=== PATIENT | female | born 1970 | race Caucasian/White ===

== ENCOUNTER → 2017-10-30 11:30 | Outpatient (CLI) | payer BC, SELFPAY ==
[2017-10-30 12:58] LABS: Hemoglobin A1c 5.8 % (4.2-6.3)
== END ==
PROVIDERS: Family Provider Family Medicine; PCP Family Medicine; Visit Provider Family Medicine
DX: R73.09 Other abnormal glucose (principal)
CPT/HCPCS: 36415; 83036

== ENCOUNTER → 2018-05-02 08:51 | Outpatient (CLI) | payer BC, SELFPAY ==
[2018-05-02 10:03] LABS: Hemoglobin A1c 5.7 % (4.2-6.3)
[2018-05-02 10:10] LABS: Anion Gap 7 (5-15); BUN 12 mg/dL (7-18); Calcium,Total 8.3 mg/dL (8.5-10.1); Chloride 104 mmol/L (98-107); Cholesterol 244 mg/dL (200); EST Glomerular Filtration Rate 82 mL/min (>60); Est Glom Filt Rate - Afr Amer 99 mL/min (>60); Glucose 119 mg/dL (74-106); High Density Lipoprotein 62 mg/dL; Sodium Level 139 mmol/L (136-145); Triglycerides 227 mg/dL; Very Low Density Lipoprotein 45 mg/dL (5-40)
== END ==
PROVIDERS: Family Provider Family Medicine; PCP Family Medicine; Referring Provider Family Medicine; Visit Provider Family Medicine
DX: R73.03 Prediabetes (principal)
CPT/HCPCS: 36415; 80048; 80061; 83036

== ENCOUNTER → 2018-11-21 12:00 | Outpatient (CLI) | payer BC, SELFPAY ==
[2018-11-21 13:09] LABS: ALB/GLOB Ratio 1.2 RATIO (0.9-2.4); AST(SGOT) 16 U/L (15-37); Alanine Aminotransfer ALT/SGPT 26 U/L (13-56); Albumin, Serum 3.6 g/dL (3.2-5.0); Alkaline Phosphatase 75 U/L (45-117); Anion Gap 6 (5-15); BUN 13 mg/dL (7-18); BUN/Creat Ratio 15.9 RATIO (10-20); Calcium,Total 8.7 mg/dL (8.5-10.1); Chloride 104 mmol/L (98-107); Cholesterol 250 mg/dL (200); Creatinine, Serum 0.82 mg/dL (0.55-1.02); EST Glomerular Filtration Rate 80 mL/min (>60); Est Glom Filt Rate - Afr Amer 96 mL/min (>60); Globulin 3.1 g/dL (2.2-4.2); Glucose 108 mg/dL (74-106); High Density Lipoprotein 61 mg/dL; Potassium 4.2 mmol/L (3.5-5.1); Protein, Total 6.7 g/dL (6.4-8.2); Sodium Level 139 mmol/L (136-145); Thyroid Stim Hormone (TSH) 1.11 uIU/mL (0.358-3.74); Triglycerides 274 mg/dL; Very Low Density Lipoprotein 55 mg/dL (5-40)
[2018-11-21 13:10] LABS: Hemoglobin A1c 6.1 % (4.2-6.3)
== END ==
PROVIDERS: Family Provider Family Medicine; PCP Family Medicine; Referring Provider Family Medicine; Visit Provider Family Medicine
DX: R73.03 Prediabetes (principal); E78.5 Hyperlipidemia, unspecified; R68.89 Other general symptoms and signs
CPT/HCPCS: 36415; 80053; 80061; 83036; 84443

== ENCOUNTER → 2019-05-19 08:35 | Outpatient (CLI) | payer BC, SELFPAY ==
[2019-05-19 10:33] LABS: Hemoglobin A1c 5.7 % (4.2-6.3)
[2019-05-19 10:57] LABS: ALB/GLOB Ratio 1.2 RATIO (0.9-2.4); AST(SGOT) 24 U/L (15-37); Alanine Aminotransfer ALT/SGPT 55 U/L (13-56); Albumin, Serum 3.7 g/dL (3.2-5.0); Alkaline Phosphatase 85 U/L (45-117); Anion Gap 5 (5-15); BUN 13 mg/dL (7-18); Calcium,Total 8.6 mg/dL (8.5-10.1); Chloride 107 mmol/L (98-107); Cholesterol 216 mg/dL (200); Creatinine, Serum 0.76 mg/dL (0.55-1.02); EST Glomerular Filtration Rate 86 mL/min (>60); Est Glom Filt Rate - Afr Amer 104 mL/min (>60); Glucose 116 mg/dL (74-106); High Density Lipoprotein 56 mg/dL; Luteinizing Hormone 12.5 mIU/mL; Potassium 4.1 mmol/L (3.5-5.1); Protein, Total 6.7 g/dL (6.4-8.2); Sodium Level 139 mmol/L (136-145); Triglycerides 167 mg/dL; Very Low Density Lipoprotein 33 mg/dL (5-40)
== END ==
PROVIDERS: Family Provider Family Medicine; PCP Family Medicine; Referring Provider Family Medicine; Visit Provider Family Medicine
DX: N91.2 Amenorrhea, unspecified (principal); R23.2 Flushing; R73.9 Hyperglycemia, unspecified
CPT/HCPCS: 36415; 80053; 80061; 83001; 83002; 83036

== ENCOUNTER → 2020-07-15 14:48 | Outpatient (CLI) | payer BC, SELFPAY ==
[2020-07-15 15:39] LABS: Hemoglobin A1c 5.5 % (3.8-5.6)
[2020-07-15 16:01] LABS: ALB/GLOB Ratio 1.2 RATIO (0.9-2.4); AST(SGOT) 25 U/L (15-37); Alanine Aminotransfer ALT/SGPT 54 U/L (13-56); Albumin, Serum 3.9 g/dL (3.2-5.0); Alkaline Phosphatase 89 U/L (45-117); Anion Gap 6 (5-15); BUN 15 mg/dL (7-18); BUN/Creat Ratio 16.2 RATIO (10-20); Chloride 103 mmol/L (98-107); Cholesterol 280 mg/dL (200); Creatinine, Serum 0.92 mg/dL (0.55-1.02); EST Glomerular Filtration Rate 69 mL/min (>60); Est Glom Filt Rate - Afr Amer 83 mL/min (>60); Globulin 3.2 g/dL (2.2-4.2); Glucose 113 mg/dL (74-106); High Density Lipoprotein 77 mg/dL; Potassium 3.8 mmol/L (3.5-5.1); Protein, Total 7.1 g/dL (6.4-8.2); Sodium Level 137 mmol/L (136-145); Triglycerides 220 mg/dL; Very Low Density Lipoprotein 44 mg/dL (5-40)
== END ==
PROVIDERS: PCP Family Medicine; Referring Provider Family Medicine; Visit Provider Family Medicine
DX: R73.03 Prediabetes (principal); E78.5 Hyperlipidemia, unspecified
CPT/HCPCS: 36415; 80053; 80061; 83036

== ENCOUNTER → 2021-02-20 10:07 | Outpatient (CLI) | payer BC, SELFPAY ==
[2021-02-20 11:02] LABS: Hemoglobin A1c 5.6 % (3.8-5.6)
[2021-02-20 11:19] LABS: Anion Gap 4 (5-15); BUN 13 mg/dL (7-18); BUN/Creat Ratio 19.7 RATIO (10-20); Calcium,Total 8.4 mg/dL (8.5-10.1); Chloride 107 mmol/L (98-107); Creatinine, Serum 0.66 mg/dL (0.55-1.02); EST Glomerular Filtration Rate 101 mL/min (>60); Est Glom Filt Rate - Afr Amer 122 mL/min (>60); Glucose 114 mg/dL (74-106); Potassium 4.2 mmol/L (3.5-5.1); Sodium Level 137 mmol/L (136-145)
== END ==
PROVIDERS: PCP Family Medicine; Referring Provider Family Medicine; Visit Provider Family Medicine
DX: Z00.00 Encounter for general adult medical examination without abnormal findings (principal); E78.5 Hyperlipidemia, unspecified; F41.9 Anxiety disorder, unspecified
CPT/HCPCS: 36415; 80048; 82306; 83036

== ENCOUNTER → 2022-03-27 | Outpatient (CLI) | payer BC, SELFPAY ==
[2022-03-27 09:46] LABS: Absolute Lymphocyte Count 1.63 X10^3/uL (0.83-4.51); Absolute Neutrophil Count 4.4 X10^3/uL (2.0-7.7); Basophil# 0.04 X10^3/uL; Basophil% 0.6 % (0-1); Eosinophil# 0.28 X10^3/uL; Eosinophils% 4.2 % (0-5); Hematocrit 40.6 % (37-47); Hemoglobin 13.7 g/dL (12.0-15.0); Lymphocyte # 1.63 X10^3/ul (0.83-4.51); Lymphocyte % 24.6 % (19-41); Mean Corp Hgb Conc 33.7 g/dL (32-36); Mean Corpuscular Hgb 27.8 pg (27.0-32.0); Mean Corpuscular Volume 82.4 fL (81-99); Mean Platelet Vol. 10.9 fl (6.2-12.0); Monocyte% 4.5 % (0-10); NRBC Flagged by Analyzer 0 % (0-5); Neutrophil # 4.36 X10^3/uL (2.7-7.7); Neutrophil % 65.8 % (47-70); Platelet Count 272 K/mm3 (150-450); RBC Distribution Width CV 13.2 % (11.6-14.6); RBC Distribution Width SD 39.4 fl (35.1-43.9); Red Blood Count 4.93 M/mm3 (4.2-5.4); White Blood Count 6.6 K/mm3 (4.4-11.0)
[2022-03-27 10:11] LABS: Vitamin B12 1090 pg/mL (211-911); Vitamin D,25 Hydroxy 74.9 ng/mL
[2022-03-27 10:14] LABS: Hemoglobin A1c 5.6 % (3.8-5.6)
[2022-03-27 10:24] LABS: ALB/GLOB Ratio 1.3 RATIO (0.9-2.4); AST(SGOT) 22 U/L (15-37); Alanine Aminotransfer ALT/SGPT 59 U/L (13-56); Alkaline Phosphatase 72 U/L (45-117); Anion Gap 6 (5-15); BUN 17 mg/dL (7-18); BUN/Creat Ratio 18.5 RATIO (10-20); Calcium,Total 8.9 mg/dL (8.5-10.1); Chloride 104 mmol/L (98-107); Cholesterol 217 mg/dL (200); Creatinine, Serum 0.92 mg/dL (0.55-1.02); EST Glomerular Filtration Rate 69 mL/min (>60); Est Glom Filt Rate - Afr Amer 83 mL/min (>60); Glucose 144 mg/dL (74-106); High Density Lipoprotein 49 mg/dL; Potassium 3.8 mmol/L (3.5-5.1); Sodium Level 139 mmol/L (136-145); Thyroid Stim Hormone (TSH) 1.09 uIU/mL (0.358-3.74); Triglycerides 178 mg/dL; Very Low Density Lipoprotein 36 mg/dL (5-40)
== END | disposition home or self-care (01) ==
LOC: LAB 09:24
PROVIDERS: PCP Family Medicine; Referring Provider Family Medicine; Visit Provider Family Medicine
DX: R73.03 Prediabetes (principal); Z68.41 Body mass index [BMI] 40.0-44.9, adult; E66.01 Morbid (severe) obesity due to excess calories; G47.30 Sleep apnea, unspecified; F41.9 Anxiety disorder, unspecified; E78.5 Hyperlipidemia, unspecified
CPT/HCPCS: 36415; 80053; 80061; 82306; 82607; 83036; 84439; 84443; 85025

== ENCOUNTER → 2022-10-08 | Outpatient (CLI) | payer BC, SELFPAY ==
[2022-10-08 10:48] LABS: Hemoglobin A1c 5.3 % (3.8-5.6)
[2022-10-08 10:56] LABS: ALB/GLOB Ratio 1.3 RATIO (0.9-2.4); AST(SGOT) 15 U/L (15-37); Alanine Aminotransfer ALT/SGPT 30 U/L (13-56); Alkaline Phosphatase 75 U/L (45-117); Anion Gap 5 (5-15); BUN 16 mg/dL (7-18); BUN/Creat Ratio 18.1 RATIO (10-20); Calcium,Total 9.4 mg/dL (8.5-10.1); Chloride 105 mmol/L (98-107); Creatinine, Serum 0.88 mg/dL (0.55-1.02); EST Glomerular Filtration Rate 72 mL/min (>60); Est Glom Filt Rate - Afr Amer 87 mL/min (>60); Glucose 155 mg/dL (74-106); Potassium 3.9 mmol/L (3.5-5.1); Sodium Level 140 mmol/L (136-145)
== END | disposition home or self-care (01) ==
LOC: LAB 09:50
PROVIDERS: PCP Family Medicine; Visit Provider Family Medicine
DX: R73.03 Prediabetes (principal)
CPT/HCPCS: 36415; 80053; 83036

== ENCOUNTER → 2023-10-11 | Outpatient (CLI) | payer BC, SELFPAY ==
--- OUTSIDE RECORDS SUMMARY | 2023-10-11 09:04 | XMS RPT_ITS | CCD ---
Author Name Unknown Address [address] [place] [address] Organization [facility] Care Team Providers Care Liquor [employer]inder [employer] Operator Name Role Phone Judy Mireles Attending Unavailable Judy Mireles Primary Care Unavailable Judy Mireles Admitting Unavailable Judy Mireles Attending Unavailable Judy Mireles Primary Care Unavailable Judy Mireles Admitting Unavailable Judy Mireles Attending Unavailable Judy Mireles Primary Care Unavailable Judy Mireles Unavailable Judy Mireles Unavailable Unavailable Judy Mireles Unavailable Unavailable Unavailable JUDY MIRELES Attending Unavailable JUDY MIRELES Primary Care Unavailable Allergies Allergy Classification Reported Allergen(s) Allergy Type Date of Onset Reaction(s) Facility (1 source) No Known Medication Allergies; Translations: [No Known Medication Allergies] Propensity to adverse reactions to drug (disorder) [facility] Repository Medications Completed/Discontinued Medications Medication Drug Class(es) Dates Sig (Normalized) Sig (Original) [id number] 200 actuat albuterol 0.09 mg/actuat metered dose inhaler (8 sources) beta2-Adrenergic Agonist ProAir HFA 108 (90 Base) MCG/ACT AERS Quantity: 0 Refills: 0 Ordered: 21-May-2019 DO Active Problems Active Problems Problem Classification Problem Date Documented Da te Episodic/Chronic Anxiety disorders (14 sources) Mixed anxiety and depressive disorder; Translations: [Anxiety state, unspecified] Onset: 08-28-2022 Chronic Contraceptive and procreative management (4 sources) Oral contraception; Translations: [Uses oral contraception] Episodic Disorders of lipid metabolism (14 sources) Hyperlipidemia; Translations: [Other and unspecified hyperlipidemia] Onset: 08-28-2022 Chronic Mood disorders (2 sources) Major depressive disorder, single episode, unspecified; Translations: [Major depressive disorder, single episode, unspecified] Onset: 08-28-2022 Chronic Other nutritional; endocrine; and metabolic disorders (4 sources) Obesity; Translations: [Obesity] Chronic Other nutritional; endocrine; and metabolic disorders (9 sources) Body mass index 40+ - severely obese; Translations: [Body Mass Index 40.0-44.9, adult] Chronic Other nutritional; endocrine; and metabolic disorders (1 source) Morbid obesity; Translations: [Morbid obesity] Chronic Other nutritional; endocrine; and metabolic disorders (2 sources) Morbid (severe) obesity due to excess calories; Translations: [Morbid (severe) obesity due to excess calories (CMS/HCC)] Onset: 10-10-2022 Chronic Other nutritional; endocrine; and metabolic disorders (2 sources) Body mass index (BMI) 35.0-35.9, adult; Translations: [Body mass index (BMI) 35.0-35.9, adult] Onset: 10-10-2022 Chronic Other screening for suspected conditions (not mental disorders or infectious disease) (7 sources) Patient encounter status; Translations: [Breast screening, unspecified] Episodic Other upper respiratory disease (12 sources) Allergic rhinitis; Translations: [Allergic rhinitis, cause unspecified] Chronic Other upper respiratory disease (2 sources) Other allergic rhinitis; Translations: [Other allergic rhinitis] Onset: 08-28-2022 Chronic Residual codes; unclassified (12 sources) Sleep apnea; Translations: [Unspecified sleep apnea] Chronic Residual codes; unclassified (2 sources) Sleep apnea, unspecified; Translations: [Sleep apnea, unspecified] Onset: 08-28-2022 Chronic Residual codes; unclassified (9 sources) At risk of heart disease; Translations: [Other specified conditions influencing health status] Episodic Past or Other Problems Problem Classification Problem Date Documented Da te Episodic/Chronic Diabetes mellitus without complication (14 sources) Prediabetes; Translations: [Other abnormal glucose] Onset: 08-28-2022 Episodic Other nutritional; endocrine; and metabolic disorders (5 sources) H/O: obesity; Translations: [Personal history of other endocrine, metabolic, and immunity disorders] Resolved: 08-24-2020 Episodic Unclassified (2 sources) Patient encounter status; Translations: [Screening for breast cancer] Results Test Name Value Interpretation Reference Range Facil ity Vital Signs Date Time Vital Sign Value Performing Clinician Jaclyn her 04-11-2022 08:53-0400 Body height 160.02 cm Judy Mireles Work Phone: [facility] 205 DO Work Phone: 04-11-2022 08:53-0400 Body mass index (BMI) [Ratio] 40.59 kg/m2 Judy Mireles Work Phone: [facility] 205 DO Work Phone: 04-11-2022 08:53-0400 Body surface area Derived from formula 2.05 m2 Judy Mireles Work Phone: [facility] 205 DO Work Phone: 04-11-2022 08:53-0400 Body weight 103.93 kg Judy Mireles Work Phone: [facility] 205 DO Work Phone: 04-11-2022 08:53-0400 Diastolic blood pressure 74 mm[Hg] Judy Mireles Work Phone: [facility] 205 DO Work Phone: 04-11-2022 08:53-0400 Heart rate 80 /min Judy Mireles Work Phone: [facility] 205 DO Work Phone: 04-11-2022 08:53-0400 Systolic blood pressure 114 mm[Hg] Judy Mireles Work Phone: [facility] 205 DO Work Phone: 05-22-2019 10:51-0400 BMI (Body Mass Index) 42.4 kg/m2 Judy Mireles [facility] Work Phone: 05-22-2019 10:51-0400 Body weight 108.58 kg Judy Mireles [facility] Work Phone: 05-22-2019 [id number] BP Diastolic 72 mm[Hg] Judy Mireles [facility] Work Phone: Encounters Encounter Date Encounter Type Care Provider Facility Start: 10-10-2022 End: 10-10-2022 ambulatory JUDY MIRELES [facility] Ambulatory Start: 10-09-2022 AUDIT Judy Mireles Work Phone: -[facility] Work Phone: Start: 04-11-2022 Office outpatient vi sit 25 minutes Judy Mireles Work Phone: [facility] 205 DO Work Phone: Start: 03-24-2022 AUDIT Judy Mireles Work Phone: [facility] Work Phone: Start: 08-07-2021 Rx Renewal Judy Mireles Work Phone: -[facility] Work Phone: Start: 02-22-2021 Office outpatient vi sit 25 minutes Judy Mireles Work Phone: [facility] 205 DO Work Phone: Start: 11-28-2018 End: 11-29-2018 Patient encounter procedure Judy Mireles Facility:[facility] Start: 05-26-2018 End: 05-27-2018 Patient encounter procedure Judy Mireles Facility:[facility] Start: 05-08-2018 End: 05-08-2018 Patient encounter procedure Judy Mireles Facility:[facility] Procedures Date Procedure Procedure Detail Performing Clinician Start: 05-22-2019 Comprehensive metabo lic 2000 panel Judy Mireles Start: 05-22-2019 Hemoglobin glycosylated a1c Judy Mireles Start: 05-22-2019 Lipid panel Judy silver Start: 05-22-2019 MG Breast screening Alex Mireles Dilation and curettage Judy Mireles Plan of Treatment Date Care Activity Detail Author Start: 10-10-2022 FUV, Provider: Judy Mireles, Status: Pen, Time: 8:40 AM FUV, Provider: Judy Mireles, Status: Pen, Time: 8:40 AM [facility] 205 DO Work Phone: Start: 04-11-2022 FUV, Provider: Judy Mireles, Status: Pen, Time: 8:40 AM FUV, Provider: Judy Mireles, Status: Pen, Time: 8:40 AM [facility] Work Phone: Comprehensive metabo lic 2000 panel Comprehensive Metabolic Panel [facility] Work Phone: Immunizations Immunization Date Immunization Notes Care Provider Fa [facility] 06-26-2021 Moderna COVID-19 Vac cine 100 MCG/0.5ML Intramuscular Suspension Judy Mireles Work Phone: [facility] 205 DO Work Phone: 11-24-2020 Moderna COVID-19 Vac cine 100 MCG/0.5ML Intramuscular Suspension Judy Mireles Work Phone: [facility] 205 DO Work Phone: 10-27-2020 Moderna COVID-19 Vac cine 100 MCG/0.5ML Intramuscular Suspension Judy Mireles Work Phone: [facility] 205 DO Work Phone: 04-13-2020 influenza, injectabl e, quadrivalent, preservative free Judy Mireles Work Phone: [facility] 205 DO Work Phone: 07-24-2019 Influenza, injectabl e, Madin Siobhan Canine Kidney, preservative free, quadrivalent Judy Mireles Work Phone: [facility] 205 DO Work Phone: 05-26-2018 influenza, injectabl e, quadrivalent, preservative free Judy Mireles Work Phone: [facility] 205 DO Work Phone: 02-19-2014 tetanus toxoid, redu yara diphtheria toxoid, and acellular pertussis vaccine, adsorbed Judy Mireles [facility] Work Phone: Payers Date Payer Category Payer Unknown [id number] 2017 Unknown 1972 Unknown [id number] 1972 Unknown [id number] Social History Date Type Detail Facility Assertion Unknown if ever smoked [facility] Work Phone: Never used tobacco Never used tobacco [facility] DO Work Phone: Functional Status Date Assessment Result Facility NEGATED: Highlighted row Functional performance Functional status health issues are not documented Disease [facility] Work Phone: Mental Status Date Assessment Result Facility NEGATED: Highlighted row Cognitive function [Interpretation] Cognitive status health issues are not documented Disease [facility] Work Phone: History of Present illness Narrative 02-22-2021 Note Date & Type Note Facility 02-22-2021 History of Present illness Narrative Ap presents virtually for followup on labs.Has history of prediabetes, a1c is 5.6, will monitorAnxiety and depression on effexorHyperlipidemia, has been stableReviewed labs with her notably minimal decrease calcium at 8.4, and low vitamin D. Recommend start vitamin D3 1000 IU daily and will followup.HIstory of morbid obesity, have reviewed benefits of working toward ideal body weight.PT states she has paperwork still to schedule her own mammogram,encouraged to get that done. [facility] 205 DO Work Phone: History of Present illness Narrative Note Date & Type Note Facility History of Present illness Narrative Ap presents for periodic surveillance of chronic medical problems.BMI over 40, since last seen she has joined [employer] and is down from her top weight of 252.Anxiety and depression, stable on medication,w ishes to continuehyperlipidemia, not a candidate for statinPrediabetes, a1c normal, glucose 144, very mild elevation of transaminase will monitorDue for mammogram.Due for colon cancer screening, discussed options, she has no family history of colon cancer, chooses cologuard. -[facility] 205 DO Work Phone: Summary Purpose Family History No Family History Records FoundUnknown Family Member Name Dates Details Family history of type 2 radha betes mellitus(V18.0, Z83.3) Comments:Other Status:Active Grandparent Name Dates Details Family history of malignant neoplasm(V16.9, Z80.9) Status:Active Family history of coronary a rtery disease(V17.3, Z82.49) Status:Active Family history of hypertensi on(V17.49, Z82.49) Status:Active Mother Name Dates Details Family history of malignant neoplasm(V16.9, Z80.9) Status:Active Family history of type 2 radha betes mellitus(V18.0, Z83.3) Status:Active Father Name Dates Details Family history of type 2 radha betes mellitus(V18.0, Z83.3) Status:Active Unknown Family Member Name Dates Details Family history of type 2 radha betes mellitus(V18.0, Z83.3) Comments:Other Status:Active Grandparent Name Dates Details Family history of malignant neoplasm(V16.9, Z80.9) Status:Active Family history of coronary a rtery disease(V17.3, Z82.49) Status:Active Family history of hypertensi on(V17.49, Z82.49) Status:Active Mother Name Dates Details Family history of type 2 radha betes mellitus(V18.0, Z83.3) Status:Active Family history of malignant neoplasm(V16.9, Z80.9) Status:Active Father Name Dates Details Family history of type 2 radha betes mellitus(V18.0, Z83.3) Status:Active Unknown Family Member Name Dates Details Family history of type 2 radha betes mellitus(V18.0, Z83.3) Comments:Other Status:Active Grandparent Name Dates Details Family history of malignant neoplasm(V16.9, Z80.9) Status:Active Family history of coronary a rtery disease(V17.3, Z82.49) Status:Active Family history of hypertensi on(V17.49, Z82.49) Status:Active Mother Name Dates Details Family history of malignant neoplasm(V16.9, Z80.9) Status:Active Family history of type 2 radha betes mellitus(V18.0, Z83.3) Status:Active Father Name Dates Details Family history of type 2 radha betes mellitus(V18.0, Z83.3) Status:Active Unknown Family Member Name Dates Details Family history of type 2 radha betes mellitus(V18.0, Z83.3) Comments:Other Status:Active Grandparent Name Dates Details Family history of malignant neoplasm(V16.9, Z80.9) Status:Active Family history of coronary a rtery disease(V17.3, Z82.49) Status:Active Family history of hypertensi on(V17.49, Z82.49) Status:Active Mother Name Dates Details Family history of type 2 radha betes mellitus(V18.0, Z83.3) Status:Active Family history of malignant neoplasm(V16.9, Z80.9) Status:Active Father Name Dates Details Family history of type 2 radha betes mellitus(V18.0, Z83.3) Status:Active Unknown Family Member Name Dates Details Family history of type 2 radha betes mellitus: Mother, Father, Other(V18.0, Z83.3) Status:Active Family history of malignant neoplasm: Mother, Grandparent(V16.9, Z80.9) Status:Active Family history of coronary a rtery disease: Grandparent(V17.3, Z82.49) Status:Active Family history of hypertensi on: Grandparent(V17.49, Z82.49) Status:Active Unknown Family Member Name Dates Details Family history of type 2 radha betes mellitus: Mother, Father, Other(V18.0, Z83.3) Status:Active Family history of malignant neoplasm: Mother, Grandparent(V16.9, Z80.9) Status:Active Family history of coronary a rtery disease: Grandparent(V17.3, Z82.49) Status:Active Family history of hypertensi on: Grandparent(V17.49, Z82.49) Status:Active Unknown Family Member Name Dates Details Family history of hypertensi on: Grandparent(V17.49, Z82.49) Status:Active Family history of coronary a rtery disease: Grandparent(V17.3, Z82.49) Status:Active Family history of malignant neoplasm: Mother, Grandparent(V16.9, Z80.9) Status:Active Family history of type 2 radha betes mellitus: Mother, Father, Other(V18.0, Z83.3) Status:Active Unknown Family Member Name Dates Details Family history of type 2 radha betes mellitus: Mother, Father, Other(V18.0, Z83.3) Status:Active Family history of malignant neoplasm: Mother, Grandparent(V16.9, Z80.9) Status:Active Family history of coronary a rtery disease: Grandparent(V17.3, Z82.49) Status:Active Family history of hypertensi on: Grandparent(V17.49, Z82.49) Status:Active Unknown Family Member Name Dates Details Family history of type 2 radha betes mellitus: Mother, Father, Other(V18.0, Z83.3) Status:Active Family history of malignant neoplasm: Mother, Grandparent(V16.9, Z80.9) Status:Active Family history of coronary a rtery disease: Grandparent(V17.3, Z82.49) Status:Active Family history of hypertensi on: Grandparent(V17.49, Z82.49) Status:Active Advance Directives No Advanced Directives Records FoundNo Advanced Directives Records FoundNo Advanced Directives Records Found Chief Complaint * Chief Complaint: AP EMMANUEL is here with a chief complaint of VIRTUAL VISIT; F/U LABS. * An interactive audio and video telecommunication system which permits real time communications between the patient (at the originating site) and provider (at the distant site) was [facility]. Chief Complaint: AP EMMANUEL is here with a chief complaint of yearly check with labs. Discuss getting second booster. Additional Source Comments INFORMATION SOURCE (unrecogn ized section and content) DATE CREATED AUTHOR AUTHOR'S SAÚL ATION 04/11/2022 [employer] DATE CREATED AUTHOR AUTHOR'S SAÚL ATION 04/04/2023 [facility] FOR RECORDS PERTAINING TO PATIENTS WHO ARE OR HAVE BEEN ENROLLED IN A CHEMICAL DEPENDENCY/SUBSTANCEABUSE PROGRAM, SOME INFORMATION MAY BE OMITTED. This clinical summary was aggregated from multiple sources. Caution should be exercised in using it in the provision of clinical care. This summary normalizes information from multiple sources, and as a consequence, information in this document may materially change the coding, format and clinical context of patient data. In addition, data may be omitted in some cases. CLINICAL DECISIONS SHOULD BE BASED ON THE PRIMARY CLINICAL RECORDS. [facility] [employer] provides no warranty or guarantee of the accuracy or completeness of information in this document.
[2023-10-11 12:10] LABS: Absolute Lymphocyte Count 1.72 X10^3/uL (0.83-4.51); Absolute Neutrophil Count 3.7 X10^3/uL (2.0-7.7); Basophil# 0.04 X10^3/uL; Basophil% 0.7 % (0-1); Eosinophil# 0.32 X10^3/uL; Eosinophils% 5.2 % (0-5); Hematocrit 40.4 % (37-47); Hemoglobin 13.3 g/dL (12.0-15.0); Lymphocyte # 1.72 X10^3/ul (0.83-4.51); Mean Corp Hgb Conc 32.9 g/dL (32-36); Mean Corpuscular Hgb 28.7 pg (27.0-32.0); Mean Corpuscular Volume 87.1 fL (81-99); Mean Platelet Vol. 10.6 fl (6.2-12.0); Monocyte# 0.34 X10^3/uL; Monocyte% 5.5 % (0-10); NRBC Flagged by Analyzer 0 % (0-5); Neutrophil # 3.71 X10^3/uL (2.7-7.7); Neutrophil % 60.3 % (47-70); Platelet Count 248 K/mm3 (150-450); RBC Distribution Width CV 12.8 % (11.6-14.6); RBC Distribution Width SD 39.9 fl (35.1-43.9); Red Blood Count 4.64 M/mm3 (4.2-5.4); White Blood Count 6.2 K/mm3 (4.4-11.0)
[2023-10-11 12:41] LABS: ALB/GLOB Ratio 1.3 RATIO (0.9-2.4); AST(SGOT) 41 U/L (15-37); Alanine Aminotransfer ALT/SGPT 68 U/L (13-56); Alkaline Phosphatase 82 U/L (45-117); Anion Gap 3 (5-15); BUN 18 mg/dL (7-18); BUN/Creat Ratio 22.9 RATIO (10-20); Calcium,Total 9.2 mg/dL (8.5-10.1); Chloride 104 mmol/L (98-107); Cholesterol 284 mg/dL (200); Creatinine, Serum 0.79 mg/dL (0.55-1.02); EST Glomerular Filtration Rate 82 mL/min (>60); Est Glom Filt Rate - Afr Amer 99 mL/min (>60); Globulin 3.1 g/dL (2.2-4.2); Glucose 132 mg/dL (74-106); High Density Lipoprotein 59 mg/dL; Potassium 3.7 mmol/L (3.5-5.1); Protein, Total 7.1 g/dL (6.4-8.2); Sodium Level 140 mmol/L (136-145); Triglycerides 296 mg/dL; Very Low Density Lipoprotein 59 mg/dL (5-40)
[2023-10-11 13:09] LABS: Hemoglobin A1c 5.5 % (3.8-5.6)
== END | disposition home or self-care (01) ==
PROVIDERS: PCP Family Medicine; Referring Provider Family Medicine; Visit Provider Family Medicine
DX: E66.01 Morbid (severe) obesity due to excess calories (principal); Z68.35 Body mass index [BMI] 35.0-35.9, adult
CPT/HCPCS: 36415; 80053; 80061; 83036; 85025

== ENCOUNTER → 2024-01-27 | Outpatient (CLI) | payer BC, SELFPAY ==
[2024-01-27 11:07] LABS: ALB/GLOB Ratio 1.4 RATIO (0.9-2.4); AST(SGOT) 24 U/L (15-37); Alanine Aminotransfer ALT/SGPT 41 U/L (13-56); Alkaline Phosphatase 73 U/L (45-117); Anion Gap 4 (5-15); BUN 13 mg/dL (7-18); BUN/Creat Ratio 15.9 RATIO (10-20); Calcium,Total 8.9 mg/dL (8.5-10.1); Chloride 106 mmol/L (98-107); Creatinine, Serum 0.82 mg/dL (0.55-1.02); EST Glomerular Filtration Rate 78 mL/min (>60); Est Glom Filt Rate - Afr Amer 94 mL/min (>60); Globulin 2.8 g/dL (2.2-4.2); Glucose 128 mg/dL (74-106); Potassium 3.4 mmol/L (3.5-5.1); Protein, Total 6.8 g/dL (6.4-8.2); Sodium Level 140 mmol/L (136-145)
== END | disposition home or self-care (01) ==
LOC: LAB 09:44
PROVIDERS: PCP Family Medicine; Referring Provider Family Medicine; Visit Provider Family Medicine
DX: R74.01 Elevation of levels of liver transaminase levels (principal)
CPT/HCPCS: 36415; 80053

== ENCOUNTER → 2024-02-25 | Outpatient (CLI) | payer BC, SELFPAY | END | disposition home or self-care (01) | LOC: LAB 09:49 | PROVIDERS: PCP Family Medicine; Visit Provider Family Medicine | DX: E87.6 Hypokalemia (principal) | CPT/HCPCS: 36415; 84132 ==

== ENCOUNTER → 2024-03-02 | Outpatient (CLI) | payer BC, SELFPAY ==
--- NOTE | 2024-03-02 14:50 | BI_ITS ---
MAMMOGRAPHY - BILATERAL SCREENING REASON FOR EXAM: Female, 53 years old. Routine annual screening examination. PERTINENT HISTORY: Non-contributory. TECHNIQUE: Digital bilateral breast brandon (3D mammographic acquisition) in the CC and MLO projections. 2-D mediolateral oblique (MLO) and craniocaudad (CC) views of both breasts were obtained. CAD: Full Field Digital Mammography with Computer Added Detection was performed. COMPARISON: Comparison is made with prior outside examination dated February 01, 2015. FINDINGS: Breast Composition: The breasts are heterogeneously dense, which may obscure small masses. There are no dominant masses or suspicious calcifications. Stable bilateral fat containing axillary lymph nodes. No other significant abnormalities are identified. There has been no significant change since the prior study. BI/SCRN MAMM (CAD)W/BRANDON BILAT IMPRESSION: Stable bilateral screening mammogram. Yearly follow-up mammogram recommended. (A) ASSESSMENT CATEGORY: BIRADS Category 2: Benign. A letter regarding these results will be sent to the patient by the facility within 30 days. Approximately 10% of breast cancers are not detected by mammography. A normal mammogram should not delay biopsy of a clinically suspicious abnormality. [id number] Electronically Signed: Terrell Del Cid MD at 8:10 EDT ,
== END | disposition home or self-care (01) ==
LOC: OPBI 14:48
PROVIDERS: PCP Family Medicine; Referring Provider Family Medicine; Visit Provider Family Medicine
DX: Z12.31 Encounter for screening mammogram for malignant neoplasm of breast (principal)
CPT/HCPCS: 77063; 77067

== ENCOUNTER → 2024-07-23 | Outpatient (CLI) | payer BC, SELFPAY ==
[2024-07-23 12:36] LABS: Mucous, Urine 0 SEEN /hpf (<or=2+); Red Blood Cells-Urine 0 SEEN /hpf (0-5)
[2024-07-23 13:03] LABS: Absolute Lymphocyte Count 1.44 X10^3/uL (0.83-4.51); Absolute Neutrophil Count 2.9 X10^3/uL (2.0-7.7); Basophil# 0.05 X10^3/uL; Eosinophil# 0.25 X10^3/uL; Hematocrit 42.4 % (37-47); Hemoglobin 13.9 g/dL (12.0-15.0); Lymphocyte # 1.44 X10^3/ul (0.83-4.51); Lymphocyte % 28.8 % (19-41); Mean Corp Hgb Conc 32.8 g/dL (32-36); Mean Corpuscular Hgb 27.6 pg (27.0-32.0); Mean Corpuscular Volume 84.3 fL (81-99); Mean Platelet Vol. 10.1 fl (6.2-12.0); Monocyte# 0.31 X10^3/uL; Monocyte% 6.2 % (0-10); NRBC Flagged by Analyzer 0 % (0-5); Neutrophil # 2.93 X10^3/uL (2.7-7.7); Neutrophil % 58.6 % (47-70); Platelet Count 245 K/mm3 (150-450); RBC Distribution Width CV 12.7 % (11.6-14.6); RBC Distribution Width SD 38.2 fl (35.1-43.9); Red Blood Count 5.03 M/mm3 (4.2-5.4)
[2024-07-23 13:27] LABS: Vitamin B12 752 pg/mL (211-911)
[2024-07-23 13:33] LABS: Bacteria 3+ /hpf (None Seen); Squamous Epithelial Cells - UA 25-50 SEEN /hpf (5-10)
[2024-07-23 13:34] LABS: ALB/GLOB Ratio 1.3 RATIO (0.9-2.4); AST(SGOT) 39 U/L (15-37); Alanine Aminotransfer ALT/SGPT 68 U/L (13-56); Albumin, Serum 3.9 g/dL (3.2-5.0); Alkaline Phosphatase 71 U/L (45-117); Anion Gap 2 (5-15); BUN 17 mg/dL (7-18); BUN/Creat Ratio 19.9 RATIO (10-20); Chloride 104 mmol/L (98-107); Cholesterol 274 mg/dL (200); Creatinine, Serum 0.85 mg/dL (0.55-1.02); EST Glomerular Filtration Rate 74 mL/min (>60); Est Glom Filt Rate - Afr Amer 90 mL/min (>60); Glucose 140 mg/dL (74-106); High Density Lipoprotein 69 mg/dL; Potassium 4.1 mmol/L (3.5-5.1); Protein, Total 6.9 g/dL (6.4-8.2); Renal Epithelial Cells 0-5 SEEN /hpf (0-5); Sodium Level 137 mmol/L (136-145); T4 Free Direct 0.81 ng/dL (0.76-1.46); Triglycerides 216 mg/dL; Very Low Density Lipoprotein 43 mg/dL (5-40); White Blood Cells 0-5 SEEN /hpf (0-5)
== END | disposition home or self-care (01) ==
LOC: LAB 12:27
PROVIDERS: PCP Family Medicine; Referring Provider Family Medicine; Visit Provider Family Medicine
DX: R73.03 Prediabetes (principal)
CPT/HCPCS: 36415; 80053; 80061; 82607; 83036; 84439; 84443; 85025

== ENCOUNTER → 2025-01-21 | Outpatient (CLI) | payer BC, SELFPAY ==
[2025-01-21 16:30] LABS: Hemoglobin A1c 6.1 % (<=5.6)
[2025-01-21 16:31] LABS: ALB/GLOB Ratio 2.2 RATIO (0.9-2.4); AST(SGOT) 29 U/L (<=31); Alanine Aminotransfer ALT/SGPT 42 U/L (<=34); Albumin, Serum 4.4 g/dL (3.5-5.0); Alkaline Phosphatase 73 U/L (35-104); Anion Gap 11 (5-15); BUN 11 mg/dL (4-19); BUN/Creat Ratio 14.8 RATIO (10-20); Calcium,Total 9.3 mg/dL (7.6-11.0); Carbon Dioxide 26.3 mmol/L (21.0-32.0); Chloride 102 mmol/L (98-108); Creatinine, Serum 0.74 mg/dL (0.70-1.20); EST Glomerular Filtration Rate 98 (>60); Globulin 2.1 g/dL (2.2-4.2); Glucose 119 mg/dL (70-99); Protein, Total 6.5 g/dL (5.9-8.4); Sodium Level 139 mmol/L (133-145); Total Bilirubin 0.49 mg/dL (0.00-1.30)
== END | disposition home or self-care (01) ==
LOC: LAB 15:12
PROVIDERS: PCP Family Medicine; Referring Provider Family Medicine; Visit Provider Family Medicine
DX: R73.03 Prediabetes (principal)
CPT/HCPCS: 36415; 80053; 83036

== ENCOUNTER → 2025-03-08 | Outpatient (CLI) | payer BC, SELFPAY ==
--- NOTE | 2025-03-08 11:13 | BI_ITS ---
EXAM: SCRN MAMM (CAD)W/BRANDON BILAT DATE: 03/08/2025 CLINICAL HISTORY: F, Age 54 y/o , SCREENING TECHNIQUE: SCRN MAMM (CAD)W/BRANDON BILAT COMPARISON: Prior exam(s) dated 03/02/2024. FINDINGS: TISSUE DENSITY: There are scattered areas of fibroglandular density. Bilateral Breast Mammographic Findings: Benign round microcalcifications are seen in both breasts. Benign-appearing well-circumscribed stable isodense masses are seen in the superior outer aspect of both the right and left breasts. These appear to have fatty hilum on the brandon images and are most compatible with intramammary lymph nodes. No suspicious masses, suspicious cluster of microcalcifications, architectural distortion or secondary sign of malignancy is identified in either breast. BI/SCRN MAMM (CAD)W/BRANDON BILAT IMPRESSION: Benign screening mammogram. OVERALL FINAL ASSESSMENT BI-RADS 2: BENIGN RECOMMENDATION: Routine annual follow-up in 1 Year A letter with findings and recommendations will be mailed to the patient. Reading Location: [id number]
== END | disposition home or self-care (01) ==
LOC: OPBI 11:31
PROVIDERS: PCP Family Medicine; Referring Provider Family Medicine; Visit Provider Family Medicine
DX: Z12.31 Encounter for screening mammogram for malignant neoplasm of breast (principal)
CPT/HCPCS: 77063; 77067

== ENCOUNTER → 2025-05-26 | Outpatient (CLI) | payer BC, SELFPAY ==
[2025-06-01 15:08] LABS: HPV APTIMA, High Risk Negative (Negative)
== END | disposition home or self-care (01) ==
LOC: LABSPEC 16:07
PROVIDERS: PCP Family Medicine; Visit Provider Obstetrics & Gynecology
DX: Z12.4 Encounter for screening for malignant neoplasm of cervix (principal)
CPT/HCPCS: 87624; 88175; G0145

== ENCOUNTER → 2025-07-20 | Outpatient (CLI) | payer BC, SELFPAY ==
[2025-07-20 17:02] LABS: Hematocrit 40.3 % (37-47); Hemoglobin 13.3 g/dL (12.0-15.0); Immature Granulocytes Count 0.020 X10^3/uL (0.0-0.0); Mean Corp Hgb Conc 33.0 g/dL (32-36); Mean Corpuscular Volume 84.5 fL (81-99); Mean Platelet Vol. 10.5 fl (6.2-12.0); NRBC Flagged by Analyzer 0 % (0-5); Platelet Count 237 K/mm3 (150-450); RBC Distribution Width CV 12.4 % (11.6-14.6); RBC Distribution Width SD 37.4 fl (35.1-43.9); Red Blood Count 4.77 M/mm3 (4.2-5.4); White Blood Count 5.7 K/mm3 (4.4-11.0)
[2025-07-20 17:34] LABS: AST(SGOT) 28 U/L (<=31); Alanine Aminotransfer ALT/SGPT 48 U/L (<=34); Albumin, Serum 4.5 g/dL (3.5-5.0); Alkaline Phosphatase 69 U/L (35-104); Anion Gap 10 (5-15); BUN 17 mg/dL (4-19); BUN/Creat Ratio 20.2 RATIO (10-20); Calcium,Total 9.6 mg/dL (7.6-11.0); Carbon Dioxide 29.5 mmol/L (21.0-32.0); Chloride 101 mmol/L (98-108); Cholesterol 274 mg/dL (<=200); Globulin 2.2 g/dL (2.2-4.2); Glucose 127 mg/dL (70-99); Low Density Lipoprotein Calc. 178 mg/dL; Potassium 4.1 mmol/L (3.3-5.1); Triglycerides 191 mg/dL; Very Low Density Lipoprotein 38 mg/dL (5-40); cholesterol:hdl ratio screen 4.48
== END | disposition home or self-care (01) ==
LOC: LAB 15:50
PROVIDERS: PCP Family Medicine; Referring Provider Family Medicine; Visit Provider Family Medicine
DX: R73.03 Prediabetes (principal); E78.49 Other hyperlipidemia
CPT/HCPCS: 36415; 80053; 80061; 83036; 84439; 84443; 85025